=== PATIENT | male | born 1975 | race Caucasian/White ===

== ENCOUNTER → 2019-11-23 11:37 | Outpatient (BNVA) | payer MEDICAID, OTHER, SELFPAY | PROVIDERS: PCP Registered Nurse; Visit Provider Social Worker Clinical | DX: F43.12 Post-traumatic stress disorder, chronic (principal); F33.2 Major depressive disorder, recurrent severe without psychotic features | CPT/HCPCS: 90834 ==

== ENCOUNTER → 2019-12-13 13:17 | Outpatient (BNVA) | payer MEDICAID, SELFPAY | PROVIDERS: PCP Registered Nurse; Visit Provider Social Worker Clinical | DX: F43.12 Post-traumatic stress disorder, chronic (principal); F33.2 Major depressive disorder, recurrent severe without psychotic features; Z87.820 Personal history of traumatic brain injury | CPT/HCPCS: 90834 ==

== ENCOUNTER → 2020-01-04 13:11 | Outpatient (BNVA) | payer MEDICAID, SELFPAY | PROVIDERS: PCP Registered Nurse; Visit Provider Psychiatry & Neurology Psychiatry | DX: F43.12 Post-traumatic stress disorder, chronic (principal); F33.2 Major depressive disorder, recurrent severe without psychotic features | CPT/HCPCS: 99213 ==

== ENCOUNTER → 2020-04-30 07:39 | Outpatient (BNVA) | payer MEDICAID, SELFPAY | PROVIDERS: PCP Registered Nurse; Visit Provider Psychiatry & Neurology Psychiatry | DX: F33.2 Major depressive disorder, recurrent severe without psychotic features (principal); F10.21 Alcohol dependence, in remission; F17.200 Nicotine dependence, unspecified, uncomplicated | CPT/HCPCS: 99214 ==

== ENCOUNTER → 2020-05-28 07:57 | Outpatient (BNVA) | payer MEDICAID, SELFPAY | PROVIDERS: PCP Registered Nurse; Visit Provider Psychiatry & Neurology Psychiatry | DX: F33.2 Major depressive disorder, recurrent severe without psychotic features (principal); F17.200 Nicotine dependence, unspecified, uncomplicated; F10.21 Alcohol dependence, in remission | CPT/HCPCS: 99213 ==

== ENCOUNTER → 2020-07-11 08:36 | Outpatient (BNVA) | payer MEDICAID, SELFPAY | PROVIDERS: PCP Registered Nurse; Visit Provider Psychiatry & Neurology Psychiatry | DX: F33.2 Major depressive disorder, recurrent severe without psychotic features (principal); F17.200 Nicotine dependence, unspecified, uncomplicated; F10.21 Alcohol dependence, in remission | CPT/HCPCS: 99213 ==

== ENCOUNTER 2020-08-23 18:50 | Inpatient (IN) | payer MEDICAID, SELFPAY ==
[2020-08-23 18:50] VITALS: BMI 28.7
[2020-08-23 19:02] VITALS: BP 136/75; PULSE 94; RESP 18; TEMP 36.3; O2SAT 95
[2020-08-23 22:00] VITALS: BP 136/75; PULSE 94; RESP 18; TEMP 36.3; O2SAT 95
[2020-08-23] MEDS: trazodone 50 mg Tablet PO (22:14)
[2020-08-23] MEDS: hyDROXYzine 25 mg Capsule 50 MG PO (22:14)
--- NOTE | 2020-08-24 01:01 | PC.NURSE ---
PT IS A 45/M TRANSFER PT FROM [facility]. HE CAME TO THE ED THERE DUE TO SI/HI AFTER A BREAKUP WITH HIS GIRLFRIEND THAT RESULTED IN HIM BEING HOMELESS AT THIS TIME. HE SAYS , I DONT WANT TO FEEL THIS WAY AND DON'T KNOW WHAT ELSE TO DO. PT DENIES SI/HI AT ASSESSMENT ON UNIT. HE IS CALM AND COOPERATIVE WITH STAFF. HE DENIES DRUG USE BUT IS POSITIVE FOR METH/OPIATES. PT HAS FX OF HIS RIGHT 3RD AND 4TH METATARSALS WITH DISPLACEMENT WITH XRAY REPORT FROM [facility] FOR REFERENCE IS IN THE CHART
--- NOTE | 2020-08-24 01:03 | PC.NURSE ---
X-R results of his right hand are positive for Oblique fractures of the third and forth metacarpals with mild dorsal displacement and volar angulation. Mild associated soft tissue swelling. mild degenerative change along the third DIP. X-Ray disk and report in hard chart.
[2020-08-24 06:00] VITALS: BP 119/77; PULSE 86; RESP 16; TEMP 36.6; O2SAT 96
[2020-08-24] MEDS: BuSPIRONE 5 mg Tablet PO ×3 (08:42→21:06)
[2020-08-24] MEDS: buPROPion XL (24 HR) 300 mg Tablet PO (08:42)
[2020-08-24] MEDS: CELEcoxib 100 mg Capsule PO ×2 (10:30→18:18)
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
[2020-08-24 13:54] VITALS: BP 143/77; PULSE 89; RESP 18; TEMP 36.7; O2SAT 96
--- NOTE | 2020-08-24 15:03 | PC.RESP ---
Smoking Cessation information sent to patient.
[2020-08-24] MEDS: hyDROXYzine 25 mg Capsule 50 MG PO (21:05)
[2020-08-24] MEDS: acetaminophen 325 mg Tablet 650 MG PO (21:06)
[2020-08-24] MEDS: mirtazapine 30 mg Tablet PO (21:06)
--- NOTE | 2020-08-24 21:07 | PC.NURSE ---
PRN VISTARIL ADMINISTERED VISTARIL 50MG PO FOR PATIENT C/O INCREASING ANXIETY.
[2020-08-24 22:00] VITALS: BP 140/54; PULSE 81; RESP 17; TEMP 36.6; O2SAT 96
--- NOTE | 2020-08-25 04:30 | PC.NURSE ---
Pt right hand is swollen. He reported moderate pain and there is marked swelling of the fingers and hand itself. Offered to put ice on it to decrease the swelling and pt refused intervention. He did take tylenol for the pain. Pt is unhappy that he has not had enough to eat while on the unit. Added double portion to his dietary orders. Arina Ferguson seems anxious and requested medication to help relieve his anxiety and help him sleep.Med nurse gave him trazodone.
[2020-08-25 06:00] VITALS: BP 117/74; PULSE 72; RESP 15; TEMP 36.5; O2SAT 97
[2020-08-25] MEDS: buPROPion XL (24 HR) 300 mg Tablet PO (06:16)
[2020-08-25] MEDS: BuSPIRONE 5 mg Tablet PO ×3 (09:01→20:48)
[2020-08-25] MEDS: CELEcoxib 100 mg Capsule PO ×2 (09:01→17:18)
--- NOTE | 2020-08-25 11:51 | PM.NPN ---
Subjective NPU Subjective: Interval history: Marty presents today reporting that he is tolerating the medication fine. He denies any major issues or problems. He is endorsing that he is struggling with sleeping mostly because he had pain in his hand. He was wondering about the possibility of a sleep medication and we discussed him utilizing the trazodone and possible increase in that if that is ineffective. He reports that he is eating fine. Mental Status Exam MSE Comments: This is an overweight, white male, with adequate dress, grooming, and eye contact. No abnormal movements. Cooperative with exam in no acute distress. Speech was decreased rate and volume. He has multiple tattoos on his exposed skin. Mood described as depression is a little better, but sleep is making it hard.; affect congruent. Thought process, organized. Thought content: patient denied current suicidal ideation but did endorse homicidal ideation. There were no delusions reported or noted. Patient denied any auditory or visual hallucinations. Attention, concentration, and memory appear intact but were not formally tested. He is alert and oriented times three. Insight and judgment are fair. Impulse control is limited. Vitals/I&O/Wt Last Vital Signs Temp 97.8 F 08/25/20 20:49 Pulse 76 08/25/20 20:49 Resp 16 08/25/20 20:49 BP 118/77 08/25/20 20:49 Pulse Ox 96 08/25/20 20:49 A&P Additional A&P Information (1) Nicotine dependence, unspecified, uncomplicated: (2) Alcohol use disorder, moderate, in early remission, dependence: (3) Major depressive disorder, recurrent severe without psychotic features: (4) History of right knee surgery: (5) Arthralgia of right knee: This is a 45 year old, white male, with alcohol use disorder, major depressive disorder, recurrent, severe, without psychotic features, who presents reporting that he needs to get his medication adjusted and get back on it. Continue current medication Encourage individual, group, and milieu therapy. Continue q-15 minute checks for safety. Involuntary Hold Information 96 Hour Hold: 96 Hour Involuntary Admission: No Attestations NPU Medical Necessity Statement*: Inpatient hospitalization is medically necessary and the clinically appropriate intervention, at this time. We will monitor medications and make changes as indicated. Likely length of stay is 1-3 days. Coding Level of Care Code Acute Senior Net C Developer for Geraldine Grey
[2020-08-25 14:00] VITALS: BP 108/64; PULSE 79; RESP 18; TEMP 36.9; O2SAT 97
[2020-08-25] MEDS: acetaminophen 325 mg Tablet 650 MG PO ×2 (17:45→20:55)
[2020-08-25] MEDS: nicotine 2 mg Gum BUCCAL (17:47)
[2020-08-25] MEDS: trazodone 50 mg Tablet PO (20:48)
[2020-08-25] MEDS: mirtazapine 30 mg Tablet PO (20:48)
[2020-08-25 20:49] VITALS: BP 118/77; PULSE 76; RESP 16; TEMP 36.6; O2SAT 96
[2020-08-25] MEDS: hyDROXYzine 25 mg Capsule 50 MG PO (20:49)
[2020-08-26 06:00] VITALS: BP 106/66; PULSE 70; RESP 17; TEMP 36.5; O2SAT 96
[2020-08-26] MEDS: buPROPion XL (24 HR) 300 mg Tablet PO (06:53)
[2020-08-26] MEDS: BuSPIRONE 5 mg Tablet PO ×3 (09:29→20:39)
[2020-08-26] MEDS: CELEcoxib 100 mg Capsule PO ×2 (09:29→17:11)
[2020-08-26 14:00] VITALS: BP 117/69; PULSE 82; RESP 18; TEMP 36.9
--- NOTE | 2020-08-26 15:42 | P.PN_ITS ---
Subjective NPU Subjective: Interval history: Marty presents today reporting that he is feeling somewhat better but is dealing with the pain. We discussed the risk benefits and alternatives of getting hospitalization tomorrow if his pain is still unmanageable and he understood and agreed to proceed as is documented in this note. Otherwise he reports that having the medication back on board is helping. He reports he is eating okay but is sleeping has been tough with some of the pain that he is having. Mental Status Exam MSE Comments: This is an overweight, white male, with adequate dress, groo deven, and eye contact. No abnormal movements. Cooperative with exam in no acute distress. Speech was decreased rate and volume. He has multiple tattoos on his exposed skin. Mood described as depression is a little better, affect somewhat irritable. Thought process, organized. Thought content: patient denied current suicidal ideation but did endorse some reduction in his homicidal ideation. There were no delusions reported or noted. Patient denied any auditory or visual hallucinations. Attention, concentration, and memory appear intact but were not formally tested. He is alert and oriented times three. Insight and judgment are fair. Impulse control is limited. Vitals/I&O/Wt Last Vital Signs Temp 98.6 F 08/26/20 19:52 Pulse 72 08/26/20 19:52 Resp 16 08/26/20 19:52 BP 105/66 08/26/20 19:52 Pulse Ox 96 08/26/20 19:52 Weight last 48 hrs Weight 92.533 kg A&P Additional A&P Information (1) Nicotine dependence, unspecified, uncomplicated: (2) Alcohol use disorder, moderate, in early remission, dependence: (3) Major depressive disorder, recurrent severe without psychotic features: (4) History of right knee surgery: (5) Arthralgia of right knee: This is a 45 year old, white male, with alcohol use disorder, major depressive disorder, recurrent, severe, without psychotic features, who presents reporting that he needs to get his medication adjusted and get back on it. Continue current medication Encourage individual, group, and milieu therapy. Continue q-15 minute checks for safety. We will consult hospitalist tomorrow morning if he still had difficulty overnight with pain. Involuntary Hold Information 96 Hour Hold: 96 Hour Involuntary Admission: No Attestations NPU Medical Necessity Statement*: Inpatient hospitalization is medically necessary and the clinically appropriate intervention, at this time. We will monitor medications and make changes as indicated. Likely length of stay is 1-3 days. Coding Level of Care Code Acute Package Delivery Room Service Runner for Geraldine Grey
[2020-08-26 19:52] VITALS: BP 105/66; PULSE 72; RESP 16; TEMP 37; O2SAT 96
[2020-08-26] MEDS: mirtazapine 30 mg Tablet PO (20:39)
[2020-08-26] MEDS: hyDROXYzine 25 mg Capsule 50 MG PO (20:39)
[2020-08-26] MEDS: trazodone 50 mg Tablet PO (20:39)
[2020-08-27 06:00] VITALS: BP 103/68; PULSE 68; RESP 16; TEMP 36.3; O2SAT 97
[2020-08-27] MEDS: buPROPion XL (24 HR) 300 mg Tablet PO (06:09)
[2020-08-27] MEDS: BuSPIRONE 5 mg Tablet PO ×3 (08:22→20:19)
[2020-08-27] MEDS: CELEcoxib 100 mg Capsule PO (08:22)
--- NOTE | 2020-08-27 13:26 | NPU.GN ---
Marty was an active participant in group this afternoon. He brought in a lot of personal experience to speak about today and was able to relate a lot of what we talked about to things in his life. Marty expressed his frustrations that he and his partner both have regarding his alcohol dependence but stated that he knows therapy can be really helpful. He said it had been a while since he'd been in therapy but that it was helpful when both he and his partner were both doing it. Marty stated that he doesn't feel he gets as much out of therapy when it's over the phone as he does when it's face to face.
[2020-08-27 14:00] VITALS: BP 131/85; PULSE 81; RESP 18; TEMP 36.3; O2SAT 96
--- NOTE | 2020-08-27 15:04 | P.PN_ITS ---
Subjective NPU Subjective: Interval history: Marty presents today reporting that he is doing all right. He had concerns about his hand and making sure there was taking care of. I explained to him that I reached out to the hospitalist and then the Ortho team and they reported that his best option would be to follow-up with the hand specialist in [place] after discharge. We will work with activities coordinator to make sure that he had the necessary appointment so he can be seen soon enough to have appropriate treatment on his hand. Otherwise he reported that his mental health issues were being managed fine and we discussed the risk benefits and alternatives of the discharge tomorrow and he understood and agreed to proceed as is documented in this note. Mental Status Exam MSE Comments: This is an overweight, white male, with adequate dress, grooming, and eye contact. No abnormal movements. Cooperative with exam in no acute distress. Speech was normal rate and volume. He has multiple tattoos on his exposed skin. Mood described as a little better, affect less irritable. Thought process, organized. Thought content: patient denied current suicidal ideation but did endorse some reduction in his homicidal ideation. There were no delusions reported or noted. Patient denied any auditory or visual hallucinations. Attention, concentration, and memory appear intact but were not formally tested. He is alert and oriented times three. Insight and judgment are fair, and improving. Impulse control is improving. Vitals/I&O/Wt Last Vital Signs Temp 97.3 F L 08/27/20 14:00 Pulse 81 08/27/20 14:00 Resp 18 08/27/20 14:00 BP 131/85 08/27/20 14:00 Pulse Ox 96 08/27/20 14:00 Weight last 48 hrs Weight 92.533 kg A&P Additional A&P Information (1) Nicotine dependence, unspecified, uncomplicated: (2) Alcohol use disorder, moderate, in early remission, dependence: (3) Major depressive disorder, recurrent severe without psychotic features: (4) History of right knee surgery: (5) Arthralgia of right knee: This is a 45 year old, white male, with alcohol use disorder, major depressive disorder, recurrent, severe, without psychotic features, who presents reporting that he needs to get his medication adjusted and get back on it. Continue current medication Encourage individual, group, and milieu therapy. Continue q-15 minute checks for safety. Arrange follow-up in [place] with someone that specializes in hands/orthopedic. Recommend sober living treatment at the highest level of care to which he is willing to commit. Involuntary Hold Information 96 Hour Hold: 96 Hour Involuntary Admission: No Attestations NPU Medical Necessity Statement*: Inpatient hospitalization is medically necessary and the clinically appropriate intervention, at this time. We will monitor medications and make changes as indicated. Likely length of stay is 1-2 days. Tentative plan for discharge tomorrow. Coding Level of Care Code Acute Financial Aid Coordinator for Geraldine Grey
[2020-08-27] MEDS: nicotine 2 mg Gum BUCCAL (15:53)
[2020-08-27 19:52] VITALS: BP 121/80; PULSE 79; RESP 17; TEMP 36.9; O2SAT 96
[2020-08-27] MEDS: trazodone 50 mg Tablet PO (20:19)
[2020-08-27] MEDS: mirtazapine 30 mg Tablet PO (20:19)
[2020-08-27] MEDS: hyDROXYzine 25 mg Capsule 50 MG PO (20:19)
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
[2020-08-28 06:00] VITALS: BP 96/50; PULSE 63; RESP 16; TEMP 36.3; O2SAT 98
[2020-08-28] MEDS: buPROPion XL (24 HR) 300 mg Tablet PO (06:41)
[2020-08-28 07:44] VITALS: BP 96/50; PULSE 63; RESP 16; TEMP 36.3; O2SAT 98
[2020-08-28] MEDS: BuSPIRONE 5 mg Tablet PO (08:03)
[2020-08-28] MEDS: CELEcoxib 100 mg Capsule PO (08:03)
== END 2020-08-28 08:57 | disposition home or self-care (01) | DRG 885 ==
PROVIDERS: Admitting Provider Psychiatry & Neurology Psychiatry; PCP Registered Nurse; Visit Provider Psychiatry & Neurology Psychiatry
DX: F33.2 Major depressive disorder, recurrent severe without psychotic features (principal); R45.851 Suicidal ideations; M25.561 Pain in right knee; F10.21 Alcohol dependence, in remission; F17.210 Nicotine dependence, cigarettes, uncomplicated; Z91.5 Personal history of self-harm; F43.10 Post-traumatic stress disorder, unspecified
CPT/HCPCS: 12345